=== PATIENT | female | born 1955 | race Caucasian/White ===

== ENCOUNTER → 2016-04-12 | Outpatient (CLI) | payer BC ==
[~2016-04-12] MED LIST: ASPCH81X PO; ATOR-22 PO; CALC-440 PO; COEN10CA5 PO; FLAX100019 PO; FMR25 PO; HYDR-3419 PO; HYDR12.55 PO; LEVO50TA6 PO; NIAC500T11 PO; TRMCR515 TOP
--- NOTE | 2016-04-12 12:39 | MAMMOGRAPHY REPORT ---
BILATERAL DIGITAL SCREENING MAMMOGRAM TOMOSYNTHESIS WITH CAD: 04/12/2016 CLINICAL HISTORY: Asymptomatic. Personal history of breast cancer. TECHNIQUE: Breast tomosynthesis in addition to standard 2D mammography was performed. Current study was also evaluated with a Computer Aided Detection (CAD) system. COMPARISON: Comparison is made to exams dated: 05/27/2014 ultrasound, 05/27/2014 mammogram, 3 mammogram, 02/05/2012 mammogram - [facility], and 03/16/2011 mammogram. BREAST COMPOSITION: There are scattered areas of fibroglandular density in both breasts. FINDINGS: There are possible new microcalcifications within the right breast, along the posterior n ipple line on each view and slightly lateral on the right CC view. Additional spot magnification vi ews are recommended. There is expected architectural distortion in the anterior subareolar left breast and skin irregular ity surrounding the nipple, likely related to prior surgery. No other suspicious mass, architectural distortion or cluster of microcalcifications is seen bilaterally. IMPRESSION: ACR BI-RADS CATEGORY 0: INCOMPLETE EVALUATION: NEED ADDITIONAL IMAGING EVALUATION The new microcalcifications in the right breast need additional evaluation. The patient will be called to schedule an appointment. Approximately 10% of breast cancers are not detected with mammography. A negative mammographic repor t should not delay biopsy if a clinically suggestive mass is present. Kathryn Ding M.D. ay/:04/12/2016 09:30:09 Powered Bridge Specialist: Josie HAMMOND)(Dragan), [facility] letter sent: Addl Imaging 0 BI-RADS Code: ACR BI-RADS Category 0: Incomplete Evaluation: Need Additional Imaging Evaluation
== END | disposition home or self-care (01) ==
LOC: C.MAMM 07:14
PROVIDERS: ATTEND Obstetrics & Gynecology
DX: Z12.31 Encounter for screening mammogram for malignant neoplasm of breast (principal); R92.0 Mammographic microcalcification found on diagnostic imaging of breast

== ENCOUNTER → 2016-04-19 | Outpatient (CLI) | payer BC ==
--- NOTE | 2016-04-19 15:48 | MAMMOGRAPHY REPORT ---
UNILATERAL RIGHT DIGITAL DIAGNOSTIC MAMMOGRAM: 04/19/2016 CLINICAL HISTORY: Callback from screening mammogram for right breast calcifications. TECHNIQUE: Spot magnification right cc and ML views were obtained. COMPARISON: Comparison is made to exams dated: 04/12/2016 mammogram, 05/27/2014 mammogram, 02/06/2013 mammogram, 05/27/2014 ultrasound, 02/05/2012 mammogram - [facility], and 03/16/2011 mammogram. BREAST COMPOSITION: There are scattered areas of fibroglandular density in the right breast. FINDINGS: Spot magnification views of the right breast demonstrate a new small 3 mm cluster of coar se, heterogeneous calcifications in the right 12:00 breast. While the calcifications may represent dystrophic calcifications, given that they are new and given the history of left breast DCIS, stereo tactic biopsy is recommended for further evaluation. IMPRESSION: ACR BI-RADS CATEGORY 4: SUSPICIOUS New small 3 mm cluster of calcifications in the right 12:00 breast. The calcifications are indeterm inate and stereotactic biopsy is recommended for further evaluation. A phone call was made to the physician's office to confirm faxed results were received. The patient has been verbally notified of the results. She tentatively scheduled the biopsy before leaving the department. Approximately 10% of breast cancers are not detected with mammography. A negative mammographic repor t should not delay biopsy if a clinically suggestive mass is present. Dori Hines M.D. ah/:04/19/2016 13:59:19 Sales Agent Casualty Insurance: Marily PICHARDO(Belén)(Dragan), [facility] letter sent: Abnormal 4/5 BI-RADS Code: ACR BI-RADS Category 4: Suspicious
== END | disposition home or self-care (01) ==
LOC: C.MAMM 12:59
PROVIDERS: ATTEND Obstetrics & Gynecology
DX: R92.1 Mammographic calcification found on diagnostic imaging of breast (principal)

== ENCOUNTER → 2016-05-05 | Outpatient (CLI) | payer BC ==
--- NOTE | 2016-05-05 13:10 | Discharge Instructions ---
Discharge Instructions Procedure Procedure Date: May 05, 2016. Reason for visit: Right Calcifications. Discharge Discharge Date: May 05, 2016. Discharge Diagnosis: status post breast biopsy Instructions Activity Recommendations: Additional Limitations (see below) Return to School/Work: no limitations Recommended Home Diet: No Limitations Provider Instructions: ACTIVITY RECOMMENDATIONS: * No lifting, pushing, pulling or exercising the affected side for three days. RETURN TO SCHOOL/WORK: * You may return to work/school after the procedure, but do not perform any strenuous activities for 24 to 48 hours. MEDICATIONS: * Tylenol (two 325 mg) every four to six hours if needed for mild pain (if not allergic to Tylenol). DIET: * Resume previous diet. SPECIAL CARE INSTRUCTIONS: * Keep biopsy site dry for 24 hours. May shower after 24 hours, but do not soak (bathe) incision. * May remove Tegaderm (plastic patch) tomorrow AFTER showering. * Leave the steri-strips on for one week. Allow the steri-strips to fall off by themselves. If not off after one week, you may remove them. You may place a Bandaid crosswise over the strips, if desired. * Apply ice 10 minutes on and 10 minutes off as needed. * Wear a bra at bedtime to sleep more comfortably for 2-3 days. * Your referring physician should have the results after approximately 5 to 7 business days. * Call for unusual bleeding, fever, drainage, etc or if you have any questions call during normal business hours or after hours call Dr Hines, . FOLLOW UP VISIT: Follow-up with Referring Physician as scheduled. Salena Stanford Recommendations: Call your doctor if: * Temperature above 101 degrees * Pain not relieved by pain medicine ordered * There is increased drainage or redness from any incision * You have any unanswered questions or concerns. Your Doctors Instructions noted above were prepared by provider Dori Hines. Patient Signature Section: Patient Instructions Signature Page Chasitychristine Smith Patient (or Guardian) Signature/Date: I have read and understand the instructions given to me by my caregivers. Caregiver/RN/Doctor Signature/Date: The above-named patient and/or guardian has received patient instructions on this date. + Original Patient Signature Page (only) stays with chart. Please make copy for patient.
--- NOTE | 2016-05-05 15:36 | MAMMOGRAPHY REPORT ---
THIS REPORT HAS BEEN AMENDED. STEREOTACTIC GUIDED BIOPSY RIGHT BREAST: 05/05/2016 CLINICAL HISTORY: Indeterminate calcifications in the right 12:00 breast. PATIENT CONSENT: The procedure, risks, benefits, and alternatives of stereotactic biopsy with clip p lacement were discussed with the patient, and verbal and written consent was obtained. A timeout wa s performed immediately prior to the procedure. PROCEDURE DESCRIPTION: With stereotactic guidance, aseptic technique, and lidocaine as a local anest hetic (1% lidocaine to anesthetize the skin and 1% lidocaine with epinephrine to anesthetize the alpa per tissues), the area of concern was sampled multiple times with a 9-gauge vacuum-assisted biopsy n eedle (Suros Eviva). The path of approach was craniocaudal. The specimen radiograph demonstrates c alcifications to be present in the samples. A metallic marker clip was placed at the biopsy site. This was confirmed on postprocedure mammograms. Direct pressure was applied at the biopsy site and hemostasis was readily achieved. The patient tolerated the procedure without complication. She was given wound care instructions. COMPARISON: Comparison is made to exams dated: 04/19/2016 mammogram, 05/27/2014 mammogram, 02/06/2013 mammogram, 02/05/2012 mammogram - [facility], and 03/16/2011 mammogram. IMPRESSION: STEREOTACTIC GUIDED BIOPSY Stereotactic biopsy of indeterminate calcifications in the right 12:00 breast, with clip placement. The patient will receive pathology results from her ordering physician. Dori Hines M.D. ah/:05/05/2016 13:10:34 Communications Engineering Technician: Marily Acevedo, [facility] AMENDMENT: 05/10/2016 Dori Hines M.D. The pathology results from stereotactic biopsy of the right breast were reviewed on 05/10/2016. The p athology shows DCIS grade 2, which is concordant with the imaging appearance. Recommend surgical co nsultation for further evaluation. Additionally, consider bilateral breast MRI given the history of prior left breast cancer and new right breast cancer.
--- NOTE | 2016-05-05 15:37 | MAMMOGRAPHY REPORT ---
UNILATERAL RIGHT DIGITAL DIAGNOSTIC MAMMOGRAM: 05/05/2016 CLINICAL HISTORY: Status post stereotactic biopsy of right 12:00 breast calcifications. TECHNIQUE: Postprocedural right CC and ML views were obtained. COMPARISON: Comparison is made to exams dated: 04/19/2016 mammogram, 04/12/2016 mammogram, 05/27/2014 m ammogram, 02/06/2013 mammogram, and 02/05/2012 mammogram - [facility]. BREAST COMPOSITION: There are scattered areas of fibroglandular density in the right breast. FINDINGS: A new biopsy marker clip is seen at the site of the biopsied calcifications in the right 12:00 breast. No significant postbiopsy hematoma is seen. IMPRESSION: POST PROCEDURE IMAGING FOR MARKER PLACEMENT New biopsy marker clip status post stereotactic biopsy of right 12:00 calcifications. Pathology res ults are pending. Approximately 10% of breast cancers are not detected with mammography. A negative mammographic repor t should not delay biopsy if a clinically suggestive mass is present. Dori Hines M.D. /:05/05/2016 13:25:54 Ingot Weigher: Marily Acevedo, [facility] BI-RADS Code: Post Procedure Imaging For Marker Placement
== END | disposition home or self-care (01) ==
LOC: C.MAMM 12:12
PROVIDERS: ATTEND Nurse Practitioner Adult Health
DX: D05.11 Intraductal carcinoma in situ of right breast (principal)

== ENCOUNTER → 2016-10-19 | Outpatient (CLI) | payer SELFPAY ==
[2016-10-19 15:12] VITALS: BP 117/71; PULSE 81; TEMP 37; O2SAT 98
--- NOTE | 2016-10-19 15:57 | Radiation Oncology Follow-Up ---
Radiation Oncology Follow-Up Date of Visit Oct 19, 2016. Reason For Visit One-month follow-up and cancer survivorship care plan Radiation Completion Date 09/13/16 Diagnosis (1) Intraductal cancer of right breast Status: Acute Onset Date: 05/05/2016 Stage: 0 Permanent Comment: History of DCIS of the left breast in 2009. Status post lumpectomy followed by radiation therapy and then tamoxifen Abnormal right breast mammogram Status post stereotactic core needle biopsy 05/05/2016 Finding of DCIS grade 2 Estrogen receptor positive and progesterone receptor positive Needle localization lumpectomy 05/23/2016 pTis NX positive margin Status post reexcision with negative margin 07/25/2016 Status post completion of radiation therapy 09/13/2016. She received 3850 cGy utilizing accelerated partial breast irradiation. Last Edited By: Ling Snyder on Sep 21, 2016 09:49 History of Present Illness Ms. Smith is a 61-year-old female who has a strong family history of breast cancer. The patient's mother was diagnosed with bilateral breast cancer by 10 years. The first was premenopausal at the second was postmenopausal. She ultimately at age 59 from metastatic rest cancer. She also had a history of stomach cancer and esophageal cancer. The patient was initially diagnosed in 2009 with a DCIS of the left breast. This was treated at the [facility] in [facility] where she received conventional radiation to the left breast and chest wall followed by 5 years of tamoxifen. The patient also underwent genetic testing and was negative for BRCA1 and 2. Because of her family history the patient has been followed closely. Her most recent bilateral digital screening mammogram was on 2016. This showed possible new microcalcifications within the right breast along the posterior nipple line. Additional spot magnification views were recommended. There was expected architectural distortion in the anterior subareolar left breast and skin irregularities surrounding the nipple likely related to prior surgery and radiation. On 04/19/2016 the patient underwent unilateral right digital diagnostic mammogram. This demonstrated a new small 3 mm cluster of coarse heterogeneous calcifications in the right breast at the 12 o'clock position. Given the patient's prior history of left breast DCIS stereotactic biopsy was recommended. On 05/05/2016 the patient underwent a stereotactic guided biopsy of the right breast. A clip was placed at that time. This tissue revealed a ductal carcinoma in situ in multiple cores ranging from 0.1-0.4 cm. The DCIS was solid with necrosis and nuclear grade 2 of 3. Estrogen receptors were positive (greater than 90%, strong). Progesterone receptors were positive (30%, weak to moderate). Case: [id number]. Patient was subsequently seen by Dr. Kelly Alvarez who discussed treatment options with the patient. The decision was made to proceed with a breast conserving therapy. Therefore on 05/23/2016 the patient underwent a right breast needle localized lumpectomy. This revealed foci of ductal intraepithelial neoplasia type II (also known as intermediate grade DCIS ) with necrosis. This covered an area of 5.5 mm in greatest dimension and was present focally at the superior margin. A new superior margin was taken. This also showed residual intermediate grade DCIS 3 mm in size. The new superior margin was clear but less than 1 mm. It was an intraductal palpable lump with microcalcifications completely excised. The shave biopsy cavity tissue showed DIN-2 covering an area of 4.5 mm in greatest dimension. This was 1 mm from the medial margin and medial margin was considered positive. Accession #: [id number] On 07/25/2016 patient underwent a reexcision of the positive medial margin this showed a few small scattered foci of residual ductal carcinoma in situ that was 2.5 mm from the new medial margin. There was no evidence of invasive tumor. The patient was evaluated by Dr. Sloan Sheppard for discussion of the role of adjuvant therapy. Given her prior history he discussed treatment with Letrozole to start following completion of her adjuvant radiation. We asked to see the patient today in referral to discuss with her the role of adjuvant radiation. It is for this reason the patient is being seen. She underwent a CT simulation. She was found to be a candidate for accelerated partial breast irradiation. The radiation was completed 09/13/2016. She received 3850 cGy. Interim History She's been doing well over the past month. She denies any difficulty with skin irritation or breakdown. She denies breast pain or tenderness. She is seeing Dr. Tom in follow-up and is now on Femara. She is tolerating the medication well and denies hot flashes. She is seeing Dr. Alvarez in follow-up and has mammography scheduled for January. She informs nursing that she has multiple wounds on her arms and legs. These are from bites due to bedbugs. She is having her home treated. Allergies Coded Allergies: No Known Allergies (Unverified , 08/16/16) Home Medications Scheduled Aspirin (Aspirin Chewable), 81 MG PO DAILY Atorvastatin (Lipitor), 1 TAB PO DAILY Calcium Citrate-Vitamin D (Calcium Citrate + D3), 1 TAB PO DAILY Coenzyme Q10 (Ubidecarenone) (Co Q 10), 1 CAP PO DAILY Flaxseed (Linseed) (Flaxseed Oil 1000 mg), 1 CAP PO DAILY Letrozole (Femara), 1 TAB PO DAILY Levothyroxine Sodium (Levothyroxine Sodium), 1 TAB PO DAILY Niacin (Niacin), 500 MG PO BID Scheduled PRN Hydrochlorothiazide (Hydrochlorothiazide), 1 TAB PO DAILY PRN for UNDECIDED Hydrocodon/Acetaminophen 5MG/300MG (Vicodin (5MG/300MG)), 1 TAB PO Q4-6H PRN for Pain Triamcinolone Acet (Triamcinolone Acetonide), 1 APPLN TOP BID PRN for UNDECIDED Review of Systems Gastrointestinal: Symptoms: WNL Oral: Symptoms: No Problems Respiratory: Symptoms: WNL Urinary: Symptoms: WNL Skin: Symptoms: No Problems Other Skin Symptoms: Patient currently has bed bug bites all over arms Breast: Right Upper Arm Measurement: 29.6 Right Mid Arm Measurement: 25.0 Right Wrist Measurement: 15.5 Left Upper Arm Measurement: 31.8 Left Mid Arm Measurement: 25.0 Left Wrist Measurement: 15.8 Arm Dominence: Right Physical Exam Vital Signs Date Time Temp Pulse Resp B/P (MAP) Pulse Ox O2 Delivery O2 Flow Rate FiO2 10/19/16 15:12 37.0 81 16 117/71 98 Fatigue: None General Appearance: no apparent distress Eyes: normal inspection, EOMI ENT: normal ENT inspection, hearing grossly normal Neck: no adenopathy, thyroid normal Respiratory/Chest: lungs clear, no respiratory distress, no accessory muscle use Breast: Breast examination reveals well-healed incision of the right breast. There are no masses or tenderness and no axillary adenopathy. There were no areas of wet or dry desquamation. There is no hyperpigmentation. There is no skin retractions or nipple changes. Using the [employer] score cosmesis she has a excellent outcome. Left breast shows a well-healed incision. There are no masses or tenderness and no axillary adenopathy. Cardiovascular: regular rate, rhythm, no gallop, no murmur Abdomen: non tender, soft Extremities: no pedal edema Neurologic/Psychiatric: no motor/sensory deficits, alert, normal mood/affect Skin: warm/dry, + pertinent finding (multiple wounds on her arms and legs. Small erythematous and excoriated.) Assessment & Plan Plan: Continue follow-up with Dr. Alvarez, Dr. Sheppard, and her primary care provider. She is scheduled for mammography in January. She is on the Femara. We asked her to return to our office in 6 months. She may call if she has any questions or concerns in the interim. Her home is to be treated for the bedbugs. Total Time In Follow-Up I spent 20 minutes speaking to the patient and performing examination. I spent 20 minutes reviewing information, preparing survivorship document, and completing this note. Copy To Kelly Alvarez MD; Jocelyne Tejeda M.D.; Sloan Sheppard M.D.
== END ==
LOC: C.ONC 14:53
PROVIDERS: ATTEND Physician Assistant Medical
DX: Z08 Encounter for follow-up examination after completed treatment for malignant neoplasm (principal); Z92.3 Personal history of irradiation; Z85.3 Personal history of malignant neoplasm of breast

== ENCOUNTER → 2017-01-11 | Outpatient (CLI) | payer BC ==
--- NOTE | 2017-01-11 13:53 | MAMMOGRAPHY REPORT ---
UNILATERAL RIGHT DIGITAL DIAGNOSTIC MAMMOGRAM TOMOSYNTHESIS WITH CAD: 01/11/2017 CLINICAL HISTORY: History of right breast cancer status post lumpectomy and radiation therapy, who pr esents for her first follow-up after treatment. TECHNIQUE: Breast tomosynthesis in addition to standard 2D mammography was performed. Current study was also evaluated with a Computer Aided Detection (CAD) system. Right CC and MLO 2-D and tomosynthe sis images and spot magnification right cc and ML views were obtained. COMPARISON: Comparison is made to exams dated: 05/05/2016 stereotactic biopsy, 05/05/2016 mammogram, mammogram, 04/12/2016 mammogram, 05/27/2014 mammogram, and 02/06/2013 mammogram - [facility]. BREAST COMPOSITION: There are scattered areas of fibroglandular density in the right breast. FINDINGS: There are new post surgical changes in the right breast from prior lumpectomy, including n ew density and architectural distortion at the surgical bed in the right central breast. Mild diffus e right breast skin thickening is noted, and is likely related to prior radiation therapy. There are no suspicious masses, calcifications, or areas of architectural distortion noted within the right br east. A few scattered benign-appearing calcifications are again noted. IMPRESSION: ACR-BI-RADS CATEGORY 3: PROBABLY BENIGN Expected post treatment changes in the right breast, without mammographic evidence of malignancy in t he right breast. Recommend follow-up diagnostic tomosynthesis mammograms of the right breast in 6 mo nths to reevaluate the posttreatment changes. Routine mammography of the left breast will be due at that time. The patient has been verbally notified of the results. Approximately 10% of breast cancers are not detected with mammography. A negative mammographic report should not delay biopsy if a clinically suggestive mass is present. Dori Hines M.D. ah/:01/11/2017 11:08:24 Owner/Operator: Stephanie HAMMOND)(Dragan), [facility] letter sent: Personal History 3 BI-RADS Code: ACR-BI-RADS Category 3: Probably Benign
== END | disposition home or self-care (01) ==
LOC: C.MAMM 10:15
PROVIDERS: ATTEND Surgery
DX: Z08 Encounter for follow-up examination after completed treatment for malignant neoplasm (principal); Z85.3 Personal history of malignant neoplasm of breast; Z92.3 Personal history of irradiation; Z98.890 Other specified postprocedural states

== ENCOUNTER → 2017-05-02 | Outpatient (CLI) | payer BC ==
[2017-05-02 15:37] VITALS: BP 116/73; PULSE 80; TEMP 36.6; O2SAT 96
--- NOTE | 2017-05-02 17:07 | Radiation Oncology Follow-Up ---
Radiation Oncology Follow-Up Date of Visit May 02, 2017. Reason For Visit 6 month follow-up Radiation Completion Date APBI to right breast on 09/13/16 Diagnosis (1) Intraductal cancer of right breast Status: Resolved Onset Date: 05/05/2016 Stage: 0 Permanent Comment: History of DCIS of the left breast in 2009. Status post lumpectomy followed by radiation therapy and then tamoxifen BRCA1 and BRCA2 testing negative Abnormal right breast mammogram Status post stereotactic core needle biopsy 05/05/2016 Finding of DCIS grade 2 Estrogen receptor positive and progesterone receptor positive Needle localization lumpectomy 05/23/2016 pTis NX positive margin Status post reexcision with negative margin 07/25/2016 Status post completion of radiation therapy 09/13/2016. She received 3850 cGy utilizing accelerated partial breast irradiation. Last Edited By: Ling Snyder on Oct 19, 2016 15:58 History of Present Illness Ms. Smith has a strong family history of breast cancer. The patient's mother was diagnosed with bilateral breast cancer by 10 years. The first was premenopausal at the second was postmenopausal. She ultimately at age 59 from metastatic rest cancer. She also had a history of stomach cancer and esophageal cancer. The patient was initially diagnosed in 2009 with a DCIS of the left breast. This was treated at the [facility] in [facility] where she received conventional radiation to the left breast and chest wall followed by 5 years of tamoxifen. The patient also underwent genetic testing and was negative for BRCA1 and 2. Because of her family history the patient has been followed closely. Her most recent bilateral digital screening mammogram was on 04/12/2016. This showed possible new microcalcifications within the right breast along the posterior nipple line. Additional spot magnification views were recommended. There was expected architectural distortion in the anterior subareolar left breast and skin irregularities surrounding the nipple likely related to prior surgery and radiation. On 2016 the patient underwent unilateral right digital diagnostic mammogram. This demonstrated a new small 3 mm cluster of coarse heterogeneous calcifications in the right breast at the 12 o'clock position. Given the patient's prior history of left breast DCIS stereotactic biopsy was recommended. On 05/05/2016 the patient underwent a stereotactic guided biopsy of the right breast. A clip was placed at that time. This tissue revealed a ductal carcinoma in situ in multiple cores ranging from 0.1-0.4 cm. The DCIS was solid with necrosis and nuclear grade 2 of 3. Estrogen receptors were positive (greater than 90%, strong). Progesterone receptors were positive (30%, weak to moderate). Case: [id number]. Patient was subsequently seen by Dr. Kelly Alvarez who discussed treatment options with the patient. The decision was made to proceed with a breast conserving therapy. Therefore on 05/23/2016 the patient underwent a right breast needle localized lumpectomy. This revealed foci of ductal intraepithelial neoplasia type II (also known as intermediate grade DCIS ) with necrosis. This covered an area of 5.5 mm in greatest dimension and was present focally at the superior margin. A new superior margin was taken. This also showed residual intermediate grade DCIS 3 mm in size. The new superior margin was clear but less than 1 mm. It was an intraductal palpable lump with microcalcifications completely excised. The shave biopsy cavity tissue showed DIN-2 covering an area of 4.5 mm in greatest dimension. This was 1 mm from the medial margin and medial margin was considered positive. Accession #: [id number] On 07/25/2016 patient underwent a reexcision of the positive medial margin this showed a few small scattered foci of residual ductal carcinoma in situ that was 2.5 mm from the new medial margin. There was no evidence of invasive tumor. The patient was evaluated by Dr. Sloan Sheppard for discussion of the role of adjuvant therapy. Given her prior history he discussed treatment with Letrozole to start following completion of her adjuvant radiation. We asked to see the patient today in referral to discuss with her the role of adjuvant radiation. It is for this reason the patient is being seen. She underwent a CT simulation. She was found to be a candidate for accelerated partial breast irradiation. The radiation was completed 09/13/2016. She received 3850 cGy. Interim History She has been doing well over this past 6 months. She she has noted no masses or tenderness no change of the axilla. She is up-to-date on mammography. She is on Femara and denies side effects. Allergies Coded Allergies: No Known Allergies (Unverified , 08/16/16) Home Medications Scheduled Aspirin (Aspirin Chewable), 81 MG PO DAILY Atorvastatin (Lipitor), 1 TAB PO DAILY Calcium Citrate-Vitamin D (Calcium Citrate + D3), 1 TAB PO DAILY Coenzyme Q10 (Ubidecarenone) (Co Q 10), 1 CAP PO DAILY Flaxseed (Linseed) (Flaxseed Oil 1000 mg), 1 CAP PO DAILY Letrozole (Femara), 1 TAB PO DAILY Levothyroxine Sodium (Levothyroxine Sodium), 1 TAB PO DAILY Niacin (Niacin), 500 MG PO BID Scheduled PRN Hydrochlorothiazide (Hydrochlorothiazide), 1 TAB PO DAILY PRN for UNDECIDED Triamcinolone Acet (Triamcinolone Acetonide), 1 APPLN TOP BID PRN for UNDECIDED Review of Systems Gastrointestinal: Symptoms: WNL Oral: Symptoms: No Problems Respiratory: Symptoms: WNL Urinary: Symptoms: WNL Skin: Symptoms: No Problems Breast: Right Upper Arm Measurement: 32.5 Right Mid Arm Measurement: 27.0 Right Wrist Measurement: 15.5 Left Upper Arm Measurement: 34.0 Left Mid Arm Measurement: 27.0 Left Wrist Measurement: 16.0 Arm Dominence: Right Physical Exam Vital Signs Date Time Temp Pulse Resp B/P (MAP) Pulse Ox O2 Delivery O2 Flow Rate FiO2 05/02/17 15:37 36.6 80 20 116/73 96 Fatigue: None General Appearance: no apparent distress Eyes: normal inspection, EOMI ENT: normal ENT inspection, hearing grossly normal Neck: no adenopathy, thyroid normal Respiratory/Chest: lungs clear, no respiratory distress, no accessory muscle use Breast: Breast examination reveals well-healed incision of the right breast. There are no masses or tenderness and no axillary adenopathy. She has no skin retractions or nipple changes. Using the Holliday score cosmesis she has a excellent outcome. Left breast showed a well-healed incision. There are no masses or tenderness and no axillary adenopathy. Cardiovascular: regular rate, rhythm, no gallop, no murmur Extremities: no pedal edema Neurologic/Psychiatric: no motor/sensory deficits, alert, normal mood/affect Skin: warm/dry Pain Management Patient Reports Pain: No Pain Location: None Patient Preferred Pain Scale: 0 - 10 Initial Pain Intensity: 0.0 Pain Management Plan She denies pain therefore requires no pain management. Laboratory Laboratory Results: not applicable Pathology Pathology Results: not applicable Imaging Imaging Studies: were reviewed, and pertinent findings noted below Imaging Comments Patient: ABBI SMITH [facility] Rec: [id number] Address1: [address] Address2: Acct ID: [id number] Date: 1955 Sex: F Ref Phy: Zheng Alvarez, Att Phy: Kelly Alvarez MD Eryn Phy: Jocelyne Tejeda M.D. Inter Phy: Dori Hines MD [facility] Zip: [place] [address] SC: C.MAMM Report #: [id number] Clinical Laboratory Technician: GUY Diagnosis: DCIS RT BREAST S/P SURGERY Service Date: 01/11/17 MNE: [id number] Ordering Dr: Kelly Alvarez MD CC: Kelly Alvarez MD CONF: DICTATED BY: Dori Hines MD MAMMOGRAPHY REPORT UNILATERAL RIGHT DIGITAL DIAGNOSTIC MAMMOGRAM TOMOSYNTHESIS WITH CAD: 01/11/2017 CLINICAL HISTORY: History of right breast cancer status post lumpectomy and radiation therapy, who presents for her first follow-up after treatment. TECHNIQUE: Breast tomosynthesis in addition to standard 2D mammography was performed. Current study was also evaluated with a Computer Aided Detection (CAD ) system. Right CC and MLO 2-D and tomosynthesis images and spot magnification right cc and ML views were obtained. COMPARISON: Comparison is made to exams dated: 05/05/2016 stereotactic biopsy, mammogram, 04/19/2016 mammogram, 04/12/2016 mammogram, 05/27/2014 mammogram , and 02/06/2013 mammogram - [facility]. BREAST COMPOSITION: There are scattered areas of fibroglandular density in the right breast. FINDINGS: There are new post surgical changes in the right breast from prior lumpectomy, including new density and architectural distortion at the surgical bed in the right central breast. Mild diffuse right breast skin thickening is noted, and is likely related to prior radiation therapy. There are no suspicious masses, calcifications, or areas of architectural distortion noted within the right breast. A few scattered benign-appearing calcifications are again noted. IMPRESSION: ACR-BI-RADS CATEGORY 3: PROBABLY BENIGN Expected post treatment changes in the right breast, without mammographic evidence of malignancy in the right breast. Recommend follow-up diagnostic tomosynthesis mammograms of the right breast in 6 months to reevaluate the posttreatment changes. Routine mammography of the left breast will be due at that time. The patient has been verbally notified of the results. Approximately 10% of breast cancers are not detected with mammography. A negative mammographic report should not delay biopsy if a clinically suggestive mass is present. Dori Hines M.D. ah/:01/11/2017 11:08:24 Assessment & Plan Plan: Continue scheduled mammography. She'll be due for bilateral mammography in July. She continues on Femara. She continues follow-up with Dr. Alvarez and her primary care physician. Dr. Sheppard is now retired and she is following with Dr. Levy. We asked her to return to our office in 1 year. She may call if she has any questions or concerns in the interim. Total Time In Follow-Up I spent 20 minutes speaking to the patient performing examination. I spent 15 minutes reviewing information and completing this note. Copy To Kelly Alvarez MD; Magali Levy MD; Jocelyne Tejeda M.D.
== END ==
LOC: C.ONC 14:12
PROVIDERS: ATTEND Physician Assistant Medical
DX: Z08 Encounter for follow-up examination after completed treatment for malignant neoplasm (principal); Z92.3 Personal history of irradiation; Z85.3 Personal history of malignant neoplasm of breast

== ENCOUNTER → 2017-07-19 | Outpatient (CLI) | payer BC ==
[~2017-07-19] MED LIST changes: -HYDR-3419 PO
--- NOTE | 2017-07-20 07:46 | MAMMOGRAPHY REPORT ---
BILATERAL DIGITAL DIAGNOSTIC MAMMOGRAM TOMOSYNTHESIS WITH CAD: 07/19/2017 CLINICAL HISTORY: History of right breast cancer diagnosed April 2016 status post lumpectomy and ra diation therapy. Also with remote history of left breast cancer status post lumpectomy. The patient reports no current complaints. TECHNIQUE: Breast tomosynthesis in addition to standard 2D mammography was performed. Current study was also evaluated with a Computer Aided Detection (CAD) system. Bilateral CC and MLO 2D and tomosyn thesis images and spot magnification bilateral CC and ML views were obtained. COMPARISON: Comparison is made to exams dated: 01/11/2017 mammogram, 05/05/2016 stereotactic biopsy, mammogram, 04/19/2016 mammogram, 04/12/2016 mammogram, and 05/27/2014 [facility]. BREAST COMPOSITION: There are scattered areas of fibroglandular density in both breasts. FINDINGS: There are stable postsurgical changes in the right central breast from prior lumpectomy, in cluding stable density and architectural distortion at the surgical bed. Spot magnification views of the lumpectomy bed demonstrate no suspicious masses or clusters of microcalcifications. Again noted are postsurgical changes in the left subareolar breast from remote lumpectomy, including stable dens ity and architectural distortion at the surgical bed. A few new calcifications are seen at the left lumpectomy bed, most of which are coarse and have the appearance of dystrophic calcifications from fa t necrosis. The calcifications are probably benign and likely represent fat necrosis. The remainder of both breasts are stable compared to prior exams, without suspicious masses, calcific ations, or areas of architectural distortion noted. IMPRESSION: ACR-BI-RADS CATEGORY 3: PROBABLY BENIGN Stable posttreatment changes in the right breast from prior lumpectomy. New calcifications at the le ft lumpectomy bed are probably benign and likely represent dystrophic calcifications from fat necrosi s. Recommend bilateral diagnostic tomosynthesis mammograms in 6 months, to reevaluate the right analisa st posttreatment changes and to reevaluate the calcifications at the left lumpectomy bed. The patient has been verbally notified of the results. Approximately 10% of breast cancers are not detected with mammography. A negative mammographic report should not delay biopsy if a clinically suggestive mass is present. Dori Hines M.D. /:07/19/2017 11:16:18 Infant Room Teacher: Marily Acevedo, [facility] letter sent: Personal History 3 BI-RADS Code: ACR-BI-RADS Category 3: Probably Benign
== END | disposition home or self-care (01) ==
LOC: C.MAMM 09:56
PROVIDERS: ATTEND Surgery
DX: R92.0 Mammographic microcalcification found on diagnostic imaging of breast (principal); Z85.3 Personal history of malignant neoplasm of breast